=== PATIENT | male | born 1950 | race Asian ===

== ENCOUNTER 2024-11-29 06:48 | Emergency (ER) | payer BC, MEDICARE ==
[~2024-11-29] VITALS: Ht 172.7 cm; Wt 80.3 kg
[2024-11-29 07:19] VITALS: TEMP 98.7
[2024-11-29 07:52] LABS: PLATELET COUNT (AUTO) 244 K/uL (150-450); RED BLOOD CELL COUNT(AUTO) 4.27 MIL/uL (4.5-6.0); RED CELL DISTRIBUTION WIDTH 13.7 % (11.5-15.0); WHITE BLOOD COUNT (AUTO) 8.5 K/uL (4.3-11.0)
[2024-11-29 07:56] LABS: CALCIUM, SERUM 9.4 mg/dL (8.5-10.1); CREATININE 1.5 mg/dL (0.6-1.3); SODIUM SERUM 139 mmol/L (136-145); UREA NITROGEN, BLOOD 39 mg/dL (7-18)
[2024-11-29 07:58] LABS: APPEARANCE,URINE CLEAR (CLEAR); BLOOD, URINE TRACE-INTA Ery/uL (NEGATIVE); LEUKOCYTE ESTERASE ,URINE NEGATIVE (NEGATIVE); NITRITE, URINE NEGATIVE (NEGATIVE); UGLUCOSE NEGATIVE (NEGATIVE)
[2024-11-29 08:10] LABS: ASPARTATE AMINOTRANSFERASE 21 U/L (15-37); TOTAL PROTEIN, SERUM 8.6 g/dL (6.4-8.2)
[2024-11-29 08:18] LABS: ADD URINE CULTURE NO; SQUAMOUS EPITHELIAL CELL,UR Few /HPF (None Seen)
[2024-11-29] MEDS ORDERED: TAMS-12 PO (09:01)
[2024-11-29] MEDS ORDERED: TAMSULOSIN 0.4 MG CAP.SR.24H ONE (09:33)
[2024-11-29] MEDS: TAMSULOSIN 0.4 MG CAP.SR.24H PO ONE (09:34)
[2024-11-29 09:37] VITALS: BP 141/82; O2SAT 98
== END 2024-11-29 09:37 | disposition home or self-care (01) ==
LOC: ER 07:12
DX: R33.9 Retention of urine, unspecified (principal); R10.84 Generalized abdominal pain; I10 Essential (primary) hypertension; Z60.2 Problems related to living alone
CPT/HCPCS: 99284; 74176; 51702; 85025; 80048; 87086; 83690; 80076; 81001; 36415; 84484; 93005; A6403